=== PATIENT | female | born 1945 | race Caucasian/White ===

== ENCOUNTER 2018-04-01 08:33 | Day surgery (SDC) | payer OTHER, MEDICARE ==
[2018-03-30 13:20] VITALS: BMI 25.2
[2018-04-01 08:56] VITALS: TEMP 96.6
[2018-04-01] MEDS ORDERED: methylPREDNISolone ACET (DEPO) 40 MG/1 ML VIAL NR ONE (11:00)
[2018-04-01] MEDS ORDERED: BUPIVACAINE HCL/PF 0.25% (2.5MG/ML) 10 ML VIAL IJ ONE (11:00)
[2018-04-01 13:12] VITALS: BP 99/57; PULSE 62
== END 2018-04-01 13:05 | disposition home or self-care (01) ==
LOC: JRADIR 08:33
PROVIDERS: ATTEND Family Medicine
PROC: 3E0R3BZ Introduction of Anesthetic Agent into Spinal Canal, Percutaneous Approach (ICD-10-PCS; principal; 2018-04-01)
PROC: 3E0R33Z Introduction of Anti-inflammatory into Spinal Canal, Percutaneous Approach (ICD-10-PCS; 2018-04-01)
PROC: B01BYZZ Fluoroscopy of Spinal Cord using Other Contrast (ICD-10-PCS; 2018-04-01)
DX: M41.86 Other forms of scoliosis, lumbar region (principal); M54.5 Low back pain
CPT/HCPCS: 62322; 77003-TC-FY

== ENCOUNTER 2021-08-31 14:34 | Emergency (ER) | payer OTHER, MEDICARE ==
[2021-08-31 14:51] VITALS: BMI 24.0
[2021-08-31] MEDS ORDERED: CASIRIVIMAB/IMDEVIMAB 10 ML in SODIUM CHLORIDE 100 ML IVPB ONE (15:23)
[2021-08-31 18:58] VITALS: BP 117/72; PULSE 84
[2021-08-31 18:59] VITALS: TEMP 99.1
== END 2021-08-31 19:05 | disposition home or self-care (01) ==
LOC: JER 14:34
PROC: 3E033GC Introduction of Other Therapeutic Substance into Peripheral Vein, Percutaneous Approach (ICD-10-PCS; principal; 2021-08-31)
DX: U07.1 COVID-19 (principal)
CPT/HCPCS: 99284-25; Q0240

== ENCOUNTER 2023-03-17 04:27 | Day surgery (SDC) | payer OTHER, MEDICARE ==
[2023-03-15 14:45] VITALS: BMI 25.7
[2023-03-17 10:45] VITALS: TEMP 98
[2023-03-17 11:19] VITALS: BP 130/74; PULSE 72; RESP 21
== END 2023-03-17 11:45 | disposition home or self-care (01) ==
LOC: JASU-ENDO 04:27
PROVIDERS: ATTEND Internal Medicine Gastroenterology
PROC: 0DBN8ZX Excision of Sigmoid Colon, Via Natural or Artificial Opening Endoscopic, Diagnostic (ICD-10-PCS; 2023-03-17)
PROC: 0DB98ZX Excision of Duodenum, Via Natural or Artificial Opening Endoscopic, Diagnostic (ICD-10-PCS; 2023-03-17)
PROC: 0DB78ZX Excision of Stomach, Pylorus, Via Natural or Artificial Opening Endoscopic, Diagnostic (ICD-10-PCS; 2023-03-17)
PROC: 0DBK8ZX Excision of Ascending Colon, Via Natural or Artificial Opening Endoscopic, Diagnostic (ICD-10-PCS; principal; 2023-03-17 10:00)
DX: Z12.11 Encounter for screening for malignant neoplasm of colon (principal); D12.2 Benign neoplasm of ascending colon; K63.5 Polyp of colon; K29.50 Unspecified chronic gastritis without bleeding; K64.8 Other hemorrhoids; Z98.0 Intestinal bypass and anastomosis status; Z85.038 Personal history of other malignant neoplasm of large intestine
CPT/HCPCS: 88305-TC; 88342-TC

== ENCOUNTER 2023-07-06 05:13 | Day surgery (SDC) | payer OTHER, MEDICARE ==
[2023-07-02 16:00] VITALS: BMI 26.2
[2023-07-06] MEDS ORDERED: LIDOCAINE HCL/PF 1% SDV 5ML VIAL ONE (07:20)
[2023-07-06] MEDS ORDERED: DEXAMETHASONE SOD PHOSPHATE 10 MG/1 ML VIAL ONE (07:20)
[2023-07-06 09:35] VITALS: RESP 18
[2023-07-06] MEDS ORDERED: IOHEXOL 180 MG/1 ML ML IJ ONE (11:19)
[2023-07-06] MEDS ORDERED: LIDOCAINE HCL 1%, 10 MG/ML (50 mL VIAL) NR ONE (11:19)
[2023-07-06] MEDS ORDERED: DEXAMETHASONE SOD PHOSPHATE 10 MG/1 ML VIAL IM ONE (11:19)
[2023-07-06 12:04] VITALS: BP 130/60; PULSE 60; TEMP 97
[2023-07-06] MEDS ORDERED: ACETAMINOPHEN 500 MG TABLET (FP) PO PRN (14:00)
== END 2023-07-06 12:22 | disposition home or self-care (01) ==
LOC: JASU-SURG 05:13
PROVIDERS: ATTEND Pain Medicine Pain Medicine
PROC: 3E0R3BZ Introduction of Anesthetic Agent into Spinal Canal, Percutaneous Approach (ICD-10-PCS; 2023-07-06)
PROC: 3E0R33Z Introduction of Anti-inflammatory into Spinal Canal, Percutaneous Approach (ICD-10-PCS; principal; 2023-07-06 10:45)
DX: M48.061 Spinal stenosis, lumbar region without neurogenic claudication (principal); M54.16 Radiculopathy, lumbar region
CPT/HCPCS: 76000-TC-FY; J1100

== ENCOUNTER 2023-08-03 04:26 | Day surgery (SDC) | payer OTHER, MEDICARE ==
[2023-07-30 15:58] VITALS: BMI 25.5
[2023-08-03 06:36] VITALS: RESP 18
[2023-08-03] MEDS ORDERED: LIDOCAINE HCL/PF 1% SDV 5ML VIAL ONE (07:15)
[2023-08-03] MEDS ORDERED: BUPIVACAINE HCL/PF 0.5% (5MG/ML) 10 ML VIAL ONE (07:15)
[2023-08-03] MEDS ORDERED: TRIAMCINOLONE ACET 40MG/1ML VIAL ONE (08:23)
[2023-08-03] MEDS ORDERED: LIDOCAINE HCL 1% PRESERVATIVE FREE - 30ML VIAL IJ ONE (08:25)
[2023-08-03] MEDS ORDERED: IOHEXOL 180 MG/1 ML ML IJ ONE ×2 (08:26)
[2023-08-03] MEDS ORDERED: TRIAMCINOLONE ACET 40MG/1ML VIAL IM ONE (08:26)
[2023-08-03] MEDS ORDERED: BUPIVACAINE HCL/PF 0.5% (5MG/ML) 10 ML VIAL IJ ONE (08:26)
[2023-08-03 10:45] VITALS: BP 144/82; PULSE 62; TEMP 97.7
[2023-08-03] MEDS ORDERED: ACETAMINOPHEN 500 MG TABLET (FP) PO PRN (14:05)
== END 2023-08-03 09:15 | disposition home or self-care (01) ==
LOC: JASU-SURG 04:26
PROVIDERS: ATTEND Pain Medicine Pain Medicine
PROC: 3E0U3BZ Introduction of Anesthetic Agent into Joints, Percutaneous Approach (ICD-10-PCS; 2023-08-03)
PROC: 3E0U33Z Introduction of Anti-inflammatory into Joints, Percutaneous Approach (ICD-10-PCS; principal; 2023-08-03 08:00)
DX: M53.3 Sacrococcygeal disorders, not elsewhere classified (principal)
CPT/HCPCS: 76000-TC-FY